=== PATIENT | female | born 1945 | race Caucasian/White ===

== ENCOUNTER 2017-05-21 15:55 | Observation (INO) | payer MEDICARE, BC ==
[2017-05-21 16:18] LABS: #Basophils 0.1 thou/uL (0.0-0.2); #Eosinphils 0.4 thou/uL (0.0-0.7); #Lymphocytes 2.5 thou/uL (1.20-3.40); #Monocytes 0.8 thou/uL (0.11-0.59); %Basophils 1.4 % (0.0-1.0); %Eosinophils 5.1 % (0.0-10.0); %Lymphocytes 27.9 % (21.0-51.0); %Monocytes 8.7 % (0.0-10.0); %Neutrophils 56.9 % (42.0-75.0); Hemoglobin 13.7 g/dL (12.0-16.0); Mean Corpuscular HGB CONC 33.4 g/dL (32.0-36.0); Mean Corpuscular Volume 89.9 fl (81.0-99.0); Mean Platelet Volume 7.3 fL (7.4-10.4); Platelet Count 268 thou/uL (130-400); RBC Distribution Width 12.5 % (11.5-14.5); Red Blood Cell (RBC) Count 4.57 mill/uL (4.20-5.40); White Blood Cell (WBC) Count 8.9 thou/uL (4.8-10.8)
--- NOTE | 2017-05-21 16:25 | CT ---
CT CERVICAL SPINE WITHOUT CONTRAST: INDICATION: Fall with neck pain. COMPARISON: None. FINDINGS: There is prominent end plate sclerosis involving the C4-5 and T1-T2 level. There is slight retrolist hesis of C5 on C6 which is likely degenerative. No acute fracture or subluxation is evident. The cr aniocervical junction appears within normal limits. There is diffuse osteopenia. There is biapical emphysema. IMPRESSION: No acute fracture or subluxation. POS: [facility]
--- NOTE | 2017-05-21 16:25 | CT ---
CT OF THE HEAD WITHOUT CONTRAST 05/21/17 INDICATION: History of fall on Plavix. COMPARISON: None. FINDINGS: There is postprocedural change of left frontal and left temporal lobe craniectomy. There is a vascula r clip seen just superior to the suprasellar cistern consistent with operative treatment of an aneury sm. There is some mild encephalomalacia involving the inferior and lateral aspect of the left frontal lobe. No midline shift is evident. No acute infarct or hemorrhage is noted. There is prominent left periorbital and left zygomatic soft tissue contusion. The [place] lenses have been replaced. Mastoid a ir cells are clear. The paranasal sinuses are clear. The skull is intact. No displaced fracture is ev ident. IMPRESSION: 1. No acute intracranial abnormality. 2. Postoperative changes of the skull and brain. 3. Prominent contusion involving the left periorbital soft tissues and overlying the left zygoma . No definite acute osseous abnormality is evident. POS: [facility]
[2017-05-21 16:26] LABS: PTT 32.9 SEC (22.9-36.1); Prothrombin Time 13.4 SEC (12.0-14.7)
--- NOTE | 2017-05-21 16:30 | CT ---
CT OF THE FACE WITHOUT CONTRAST: INDICATION: History of fall on Plavix. FINDINGS: There is a prominent contusion and laceration overlying the left periorbital region. There is some r adiopaque density seen within the soft tissue contusion superolateral to the left orbit which may ref lect some debris. There is a prominent contusion overlying the left zygoma. No definite acute fract ure is evident. The orbital rims are intact. No air fluid level is seen within the paranasal sinuse s. The zygomatic arches are intact. The mandible is intact. There is some periapical lucency invol ving the most posterior right mandibular molar suspicious for periodontal disease. The visualized in tracranial contents reveal no definite acute abnormality. There is encephalomalacia of the left fron suad lobe likely related to patient's prior left craniotomy and cerebral aneurysm repair. The [place] lenses have been replaced. IMPRESSION: 1. No acute displaced facial fracture demonstrated. 2. Prominent soft tissue contusion and laceration involving the left periorbital region as well as o verlying the left zygoma. There is a laceration involving the soft tissues superolateral to the left orbit with some scattered embedded radiopaque densities suspicious for foreign bodies. 3. There is postsurgical change of prior craniectomy and previous cerebral arterial aneurysm repair. POS: [facility]
[2017-05-21 16:50] LABS: ALT (SGPT) 35 U/L (8-55); AST (SGOT) 28 U/L (5-34); Albumin 4.6 g/dL (3.4-4.8); Alkaline Phosphatase 114 U/L (40-150); Anion Gap 13 mmol/L (10-20); BUN (Urea Nitrogen) 13 mg/dL (9.8-20.1); Bilirubin, Total 0.4 mg/dL (0.2-1.2); Calc. Creatinine Clearance 0 mL/min (70-130); Calcium 10.2 mg/dL (7.8-10.44); Carbon Dioxide 23 mmol/L (23-31); Chloride 103 mmol/L (98-107); Estimated GFR-MDRD 76; Globulin 3.5 g/dL (2.4-3.5); Glucose 99 mg/dL (83-110); Potassium 4.1 mmol/L (3.5-5.1); Protein, Total 8.1 g/dL (6.0-8.3); Sodium 135 mmol/L (136-145)
[2017-05-21] MEDS ORDERED: Carvedilol 3.125 MG TAB PO SCH (17:15)
[2017-05-21] MEDS ORDERED: CEFAZOLIN/Water 2 GM/20 ML SYRINGE SLOW IVP SCH (17:15)
--- NOTE | 2017-05-21 17:15 | RAD ---
AP VIEW OF THE PELVIS 05/21/17 INDICATION: History of fall with pelvic pain. FINDINGS: There is scattered vascular calcifications. There is diffuse osteopenia. No definite displaced pelvic fracture is evident. IMPRESSION: No acute abnormality. POS: [facility]
--- NOTE | 2017-05-21 17:16 | RAD ---
THREE VIEWS OF THE LEFT SHOULDER 05/21/17 INDICATION: History of a trip and fall at Dr. Willis's office with left shoulder pain. COMPARISON: None. FINDINGS: No acute fracture or subluxation is evident. There is mild left AC joint osteoarthrosis. The visuali zed left lung is clear. IMPRESSION: No acute osseous abnormality. POS: [facility]
--- NOTE | 2017-05-21 17:16 | RAD ---
TWO VIEWS OF THE LEFT HUMERUS 05/21/17 HISTORY: Fall with left arm injury. COMPARISON: None. IMPRESSION: No acute fracture or subluxation is evident. POS: [facility]
[2017-05-21] MEDS ORDERED: Bacitracin Zinc 1 Packet ONE (17:21)
[2017-05-21] MEDS ORDERED: Losartan 25 MG TAB PO SCH (17:30)
--- NOTE | 2017-05-21 18:01 | RAD ---
THREE VIEWS OF THE LEFT WRIST 05/21/17 COMPARISON: None. HISTORY: Fall, trauma, pain. FINDINGS: there is prominent degenerative change involving the first carpometacarpal joint with joint space radha rowing, subchondral sclerosis and marked osteophyte formation. There is no widening of the scapholuna te interval. There is no displaced fracture or evidence of dislocation. Alignment appears normal on t he lateral view. IMPRESSION: No displaced fracture or evidence of dislocation. Severe degenerative change of the first carpometaca rpal joint. If symptoms persists, followup in 7-10 days with dedicated scaphoid views advised. POS: [facility]
--- NOTE | 2017-05-21 18:04 | RAD ---
FRONTAL AND LATERAL IMAGING LEFT FOREARM 05/21/17 COMPARISON: None. HISTORY: Fall, trauma, pain. FINDINGS: No displaced fracture or evidence of dislocation. Bones appear demineralized. IMPRESSION: No acute findings. POS: [facility]
[2017-05-21] MEDS ORDERED: Dextrose 50% Abboject 50 ML SYRINGE SLOW IVP PRN (18:23)
[2017-05-21] MEDS ORDERED: Dextrose 5% in Water 1,000 ML IV PRN (18:23)
[2017-05-21] MEDS ORDERED: Acetaminophen 325 MG TAB ONE (18:23)
[2017-05-21] MEDS ORDERED: traMADol HCl 50 MG TAB PO PRN (18:55)
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
[2017-05-21 23:20] VITALS: BMI 16.2
[2017-05-21] MEDS: Famotidine 20 MG TAB PO SCH ×2 (23:50→23:54)
[2017-05-21] MEDS: Acetaminophen 500 MG TAB PO SCH (23:54)
[2017-05-22 04:55] LABS: #Eosinphils 0.2 thou/uL (0.0-0.7); #Lymphocytes 1.4 thou/uL (1.20-3.40); #Monocytes 0.6 thou/uL (0.11-0.59); %Basophils 0.4 % (0.0-1.0); %Eosinophils 1.8 % (0.0-10.0); %Lymphocytes 15.2 % (21.0-51.0); %Monocytes 6.1 % (0.0-10.0); %Neutrophils 76.5 % (42.0-75.0); Hemoglobin 11.8 g/dL (12.0-16.0); Mean Corpuscular HGB CONC 33.9 g/dL (32.0-36.0); Mean Corpuscular Hemoglobin 30.3 pg (27.0-31.0); Mean Corpuscular Volume 89.5 fl (81.0-99.0); Mean Platelet Volume 7.2 fL (7.4-10.4); Platelet Count 213 thou/uL (130-400); RBC Distribution Width 12.4 % (11.5-14.5); Red Blood Cell (RBC) Count 3.88 mill/uL (4.20-5.40); White Blood Cell (WBC) Count 9.1 thou/uL (4.8-10.8)
[2017-05-22] MEDS: Acetaminophen 500 MG TAB PO SCH ×3 (05:26→18:40)
--- NOTE | 2017-05-22 07:44 | CT ---
PRELIMINARY REPORT/[facility]/EMERGENCY AFTER HOURS PROCEDURE: EXAM: CT Head Without Intravenous Contrast CLINICAL HISTORY: 72 years old, female; Condition or disease; Other: Head trauma; Patient HX: F/u fall, head trauma, pt on plavix TECHNIQUE: Axial computed tomography images of the head/brain without intravenous contrast. COMPARISON: CT Brain WO Con 2017-05-21 16:13 FINDINGS: Left periorbital soft tissue swelling. No definite acute skull fracture. Included paranasal sinuses are essentially clear. Prior left craniotomy. Aneurysm clip seen in the anterior suprasellar region. Areas of chronic encephalomalacia are again seen in the inferior left frontal lobe and anterior left temporal lobe, unchanged. No acute intracranial hemorrhage or mass effect. Ventricle size is normal for age. There is mild, relatively symmetrical decreased attenuation in the periventricular white matter, like ly from microvascular disease. No definite acute infarct by CT. IMPRESSION: No acute intracranial hemorrhage or mass effect. Changes of microvascular disease. Chronic/postsurgical changes as discussed above. Thank you for allowing us to participate in the care of your patient. Dictated and Authenticated by: Giovanni Velasco MD 05/22/2017 5:26 AM Central Time ([place] & [place]) FINAL REPORT EMERGENCY AFTER HOURS CT BRAIN WITHOUT CONTRAST: Date: 05/22/17 COMPARISON: 05/21/17. FINDINGS/IMPRESSION: I agree with the findings and impression given in the preliminary report per [facility] physician. No evide nce of acute intracranial abnormality. POS: [facility]
[2017-05-22] MEDS ORDERED: FOLIC ACID PO SCH (09:00)
[2017-05-22] MEDS ORDERED: VITAMIN D2 PO SCH (09:00)
[2017-05-22] MEDS ORDERED: [UNRECOGNIZED DRUG - OTHER] PO SCH (09:00)
[2017-05-22] MEDS ORDERED: Losartan 25 MG TAB PO SCH ×2 (09:00→21:00)
[2017-05-22] MEDS ORDERED: CYANOCOBALAMIN PO SCH (09:00)
[2017-05-22] MEDS ORDERED: Ferrous Sulfate 325 MG TAB PO SCH (09:00)
[2017-05-22] MEDS ORDERED: CALCIUM CITRATE PO SCH (09:00)
[2017-05-22] MEDS: Famotidine 20 MG TAB PO SCH ×2 (09:54→20:24)
[2017-05-22] MEDS: Calcium Carbonate + Vit D 1 TAB PO SCH (09:56)
[2017-05-22] MEDS: Atorvastatin Calcium 40 MG TAB PO SCH (09:56)
[2017-05-22] MEDS: Amlodipine 10 MG TAB PO SCH (09:56)
[2017-05-22] MEDS: Cyanocobalamin (Vitamin B-12) 1,000 MCG TAB PO SCH (09:57)
[2017-05-22] MEDS: Folic Acid 1 MG TAB PO SCH (09:57)
[2017-05-22] MEDS: Carvedilol 3.125 MG TAB PO SCH ×2 (10:07→16:52)
--- NOTE | 2017-05-22 18:12 | PRG ---
DATE OF SERVICE: 05/22/2017 ATTENDING PHYSICIAN: Elmer Delacruz DO. SUBJECTIVE: The patient is a 72-year-old female, being treated with Plavix, who had a ground level f all yesterday, landing on her right eye. She was brought to the [facility] ED and diagnosed with a l arge hematoma with a retained foreign body. She was negative for any fractures. There are no cerebr al, intrathoracic or intra-abdominal trauma. Due to her being on Plavix and having a mechanism nesha rning for developing an intracranial hemorrhage, she was admitted by the Trauma Services for observat ion and pain management. This morning, she reports improved pain control. She had a repeat CT scan this morning, which showed no acute intracranial hemorrhage or mass effect. OBJECTIVE: VITAL SIGNS: BP 167/71, pulse 80, temperature 96, respirations 18, O2 sat 97% on room air. GENERAL APPEARANCE: Elderly female, sitting in bed, in no acute distress. Her head is bandaged and the bandage appears clean and dry. HEENT: The patient has a large hematoma over the left periorbital area. Her head is wrapped in a ba ndage, which is clean and dry. RESPIRATORY: Her breath sounds are clear to auscultation bilaterally with normal effort. CARDIOVASCULAR: She has a regular rate and rhythm. Normal S1 and S2. ABDOMEN: Soft, nontender, nondistended. Normal bowel sounds. EXTREMITIES: She is neurovascularly intact x4. Moves all extremities. NEUROLOGIC: GCS is 15 this morning. She is alert and oriented x3. ASSESSMENT: 1. Status post ground level fall. 2. Left orbital hematoma with retained foreign body. 3. Currently anticoagulated on Plavix. 4. Soft tissue injury and skin tears of the left dorsum of hand. 5. Ground level fall with mechanism concerning for intracranial trauma. 6. Acute traumatic pain. PLAN: 1. The plan is to continue to try and optimize pain control. We will also continue serial neurologi c checks. Repeat CT scan this morning reassuring. 2. Continue with PT and OT. We will place a consult request for a walking program. Case management has been following and is working on rehab placement. This patient was seen and examined along with Dr. Elmer Delacruz on rounds, who agrees with this asses sment and plan.
[2017-05-22] MEDS: Bisacodyl 5 MG TAB PO PRN (18:40)
[2017-05-23] MEDS: Acetaminophen 500 MG TAB PO SCH ×3 (00:40→12:10)
[2017-05-23] MEDS ORDERED: Alendronate Sodium 70 mg Tablet PO SCH (06:00)
--- NOTE | 2017-05-23 07:33 | PRG ---
DATE OF SERVICE: 05/22/2017 SUBJECTIVE: Patient is doing well. She does not report any pain. She appears to report feeling better. Anticipate getting her bandage off tomorrow. OBJECTIVE: vital signs have been reviewed and are stable physical exam unchanged from daily progress note. ASSESSMENT AND PLAN: continue care as ordered in the daily progress note. continue to monitor MTDD
[2017-05-23] MEDS: Cyanocobalamin (Vitamin B-12) 1,000 MCG TAB PO SCH (09:47)
[2017-05-23] MEDS: Famotidine 20 MG TAB PO SCH (09:47)
[2017-05-23] MEDS: Calcium Carbonate + Vit D 1 TAB PO SCH (09:47)
[2017-05-23] MEDS: Amlodipine 10 MG TAB PO SCH (09:47)
[2017-05-23] MEDS: Atorvastatin Calcium 40 MG TAB PO SCH (09:47)
[2017-05-23] MEDS: Carvedilol 3.125 MG TAB PO SCH ×2 (09:47→16:05)
[2017-05-23] MEDS: Folic Acid 1 MG TAB PO SCH (09:47)
[2017-05-23] MEDS: Bisacodyl 5 MG TAB PO PRN (09:53)
[2017-05-23 12:12] VITALS: BP 162/72
[2017-05-23 12:18] VITALS: TEMP 97.8
--- NOTE | 2017-05-23 12:37 | PRG ---
DATE OF SERVICE: 05/23/2017 SUBJECTIVE: Ms. White is a 72-year-old woman status post ground level fall sustaining facial and up per extremity trauma. The patient was previously on aspirin and Plavix. Overnight, she slept well. Currently, she is awake and alert with a Phil coma scale of 15. She tolerated his diet and has h ad bowel movement. OBJECTIVE: VITAL SIGNS: Include blood pressure 147/70, pulse is 76, respiratory rate is 18, maximum temperature in the last 24 hours is 98.1 degrees Fahrenheit, oxygen saturation is 97% on room air. HEENT: Reveals decrease in facial swelling and resolving hematoma. No active bleeding present. Pup ils equal, round, and reactive to light and accommodation. HEART: Reveals regular rate and rhythm. No murmurs or gallops auscultated. CHEST: Clear to auscultation bilaterally. Breathing regular and unlabored. ABDOMEN: Soft, nontender and nondistended. NEUROLOGIC: Reveals no focal deficits present. IMPRESSION: 1. Post-admission day #2, status post ground level fall. 2. Acute traumatic brain injury with cerebral concussion. No active neurological deficits. 3. Resolving facial hematoma. PLAN: Increase activity as tolerated. We will resume low-dose aspirin and if tolerated, we will res ume Plavix tomorrow given this patient's significant peripheral vascular disease history. The patient will be transferred to a general surgical floor. Above findings and plan discussed with the patient who indicates understanding of the information given. I answered her questions.
[2017-05-23] MEDS ORDERED: Aspirin 81 mg Enteric Coated Tablet PO SCH (14:00)
--- NOTE | 2017-05-23 19:23 | DIS ---
DATE OF ADMISSION: 05/21/2017 DATE OF DISCHARGE: 05/23/2017 ADMITTING PHYSICIAN: Dr. Elmer Delacruz. DISCHARGING PHYSICIAN: Dr. Elmer Delacruz. REASON FOR HOSPITALIZATION: Ground level fall, patient on Plavix. HOSPITAL DIAGNOSES: 1. Ground level fall. 2. Current use of antiplatelet therapy, Plavix. 3. Extensive contusion and hematoma of the left side of face, left temporal scalp, and left periorbital area, left zygomatic area. 4. Soft tissue injury and skin tears over left dorsum of hand. PROCEDURES: None. DISCHARGE CONDITION: Good. DISPOSITION: Rehabilitation. DISCHARGE MEDICATIONS: The patient may resume all home medications. Aspirin resumed on day of discharge. Plavix may resume the day following discharge if patient has no further bleeding. Activity orders as tolerated. THERAPY ORDERS: Physical and occupational therapy at rehabilitation. DIETARY INSTRUCTIONS: Regular. FOLLOWUP: 1. Follow up with Dr. Raj Willis as previously scheduled. 2. Follow up with PCP. 3. Follow up with Dr. Delacruz as needed. BRIEF HISTORY OF HOSPITALIZATION: Ms. White is a 72-year-old female who was leaving her scheduled appointment at Dr. Willis's office when she tripped and fell outside of Dr. Willis's office. She reports that she was trying to step upon a ramp and did not realize the height of the ramp, which caused her to trip and fall forward, landing on her outstretched hand and face. Ms. White is currently on long-term Plavix due to vascular disease. She had a laceration over her left eyebrow, which was bleeding as well as hematoma to the left frontal scalp and left zygomatic area and periorbital ecchymosis. She was code green activation as she was on hospital campus when she fell. She was then transported to the emergency department where a workup did not identify any intracranial, intrathoracic, intra-abdominal or orthopedic injuries. Her mechanism of injury with concurrent use of Plavix was concerning for a delayed intracranial bleeding and she was therefore admitted to the hospital by the Trauma Service for continued observation and neurologic monitoring. Repeat CT scan the following morning did not demonstrate any intracranial hemorrhage. She remained GCS of 15. Pain was controlled. Wound care was consulted for a skin avulsion on the left hand. On hospital day #2, she had no further bleeding from facial or extremity injuries. Hematoma had significantly resolved. She did have diffuse edema over the left side of face. She was evaluated by Physical Therapy and Rehabilitation referral was entered. On hospital day #2, she was accepted by [facility] for admission to their facility. She is discharged to [facility] in good condition. Follow up as listed above. The patient was seen and examined with Dr. Delacruz, who agrees with the assessment and plan. NATALYA
[2017-05-24] MEDS ORDERED: Aspirin 81 mg Enteric Coated Tablet PO SCH ×2 (09:00)
== END 2017-05-23 16:08 ==
LOC: ERS 15:55 → 2SE 19:00
PROVIDERS: ADMIT Student in an Organized Health Care Education/Training Program; ATTEND Student in an Organized Health Care Education/Training Program
DX: S01.112A Laceration without foreign body of left eyelid and periocular area, initial encounter (principal); S00.03XA Contusion of scalp, initial encounter; S05.10XA Contusion of eyeball and orbital tissues, unspecified eye, initial encounter; S61.402A Unspecified open wound of left hand, initial encounter; E78.5 Hyperlipidemia, unspecified; E55.9 Vitamin D deficiency, unspecified; I73.9 Peripheral vascular disease, unspecified; I65.29 Occlusion and stenosis of unspecified carotid artery; I10 Essential (primary) hypertension; R00.2 Palpitations; M81.0 Age-related osteoporosis without current pathological fracture; L57.8 Other skin changes due to chronic exposure to nonionizing radiation; L82.1 Other seborrheic keratosis; L68.0 Hirsutism; I25.10 Atherosclerotic heart disease of native coronary artery without angina pectoris; G89.11 Acute pain due to trauma; F17.210 Nicotine dependence, cigarettes, uncomplicated; W01.0XXA Fall on same level from slipping, tripping and stumbling without subsequent striking against object, initial encounter; Y92.238 Other place in hospital as the place of occurrence of the external cause; Z79.52 Long term (current) use of systemic steroids; Z79.82 Long term (current) use of aspirin; Z79.899 Other long term (current) drug therapy; Z88.5 Allergy status to narcotic agent; Z90.710 Acquired absence of both cervix and uterus; Z98.890 Other specified postprocedural states
CPT/HCPCS: 70450 ×2; 70486; 72125; 72170; 73030; 73060; 73090; 73110; 80053; 82962 ×3; 85025 ×2; 85610; 85730; 96374; 97110; 97116 ×2; 97139 ×2; 97530; 99285; G0378; G8978; G8979; G8987; G8988; 36415; 36416

== ENCOUNTER 2017-06-18 10:01 | Outpatient (CLI) | payer MEDICARE, BC ==
--- NOTE | 2017-06-18 12:33 | CT ---
CT ANGIOGRAM ABDOMEN AND PELVIS WITH IV CONTRAST AND 3D RECONSTRUCTIONS CT ANGIOGRAM BILATERAL LOWER EXTREMITIES WITH RUNOFF TO THE FEET WITH IV CONTRAST AND 3D RECONSTRUCTI ONS: Date: 06/18/17 HISTORY: Atherosclerosis of andreafski arteries. Patient has claudication with left leg weakness. Multiple prior s urgeries on abdominal aorta and leg vessels, according to patient. COMPARISON: None available. FINDINGS: CT ANGIOGRAM ABDOMEN AND PELVIS: Atherosclerotic vascular calcifications are seen in the abdominal aorta and involving the andreafski hilario c arteries. There are postsurgical changes related to an abdominal aortoiliac graft repair. There are atherosclerotic vascular calcifications seen at the origins of each renal artery, which limits adequ ate evaluation of the renal artery origins, but there is suggested mild to moderate narrowing of each renal artery origin. There is atherosclerotic irregularity involving the proximal celiac artery with at least mild narrowi ng present. Mesenteric vessels are generally small in size. However, the superior mesenteric artery d oes appear patent. Inferior mesenteric artery is occluded at the origin. The abdominal biiliac graft repair is patent. There is ectasia of the left common femoral artery, which is otherwise patent. Ther e is atherosclerotic plaque involving the right common femoral artery with mild narrowing present. Emphysematous changes are present at each lung base. The liver, spleen, pancreas, and bilateral adrenal glands demonstrate a normal CT appearance. Subcent imeter, too small to characterize, hypodense lesions are seen in the left kidney, with mild scarring involving the anterior aspect of inferior pole left kidney, as well as a small focal area of scarring involving the lateral aspect mid portion of the right kidney. Urinary bladder has a normal CT appearance. There is a moderate amount of retained fecal material see n throughout the colon. Degenerative changes are present in the spine. There is slight Grade I anterolisthesis of L5 on S1 re lated to prominent facet degenerative changes at this level. CT ANGIOGRAM BILATERAL LOWER EXTREMITIES WITH RUNOFF TO THE FEET: Right lower extremity: There is calcified atherosclerotic plaque seen throughout the right superficial femoral artery with m ild degrees of narrowing present. The profunda femoral and popliteal artery on the right are patent. There is three vessel runoff to the right lower extremity and the dorsalis pedis artery and posterior tibial arteries are seen at the level of the foot. Left lower extremity: There is mild atherosclerotic plaque seen within the left superficial femoral artery with only mild d egrees of narrowing present. The left profunda femoral and popliteal arteries are patent. There is th ree vessel runoff to the left lower extremity with dorsalis pedis artery and posterior tibial artery seen in the foot. IMPRESSION: 1. Postsurgical changes related to an abdominal aortic biiliac bypass which is patent. Atherosclerot ic vascular calcifications are seen in the andreafski abdominal aorta and iliac arteries. 2. Limited evaluation of the renal artery origins, and the renal arteries bilaterally are generally small in caliber with at least mild and possibly moderate narrowing at the origin of each renal arter y. However, the kidneys do enhance normally and symmetrically bilaterally aside from mild scarring in volving the anterior aspect lower pole left kidney. 3. Generalized small caliber of the celiac and superior mesenteric arteries with mild atheroscleroti c vascular disease at the origin of the celiac artery. 4. Ectasia of the left common femoral artery. 5. Three vessel runoff to the bilateral lower extremities with atherosclerotic vascular calcificatio ns seen throughout the superficial femoral arteries bilaterally resulting in multifocal areas of mild narrowing. 6. Grade I anterolisthesis of L5 on S1 related to facet degenerative changes. 7. Emphysematous changes at each lung base. POS: [facility]
== END 2017-06-18 10:02 | disposition home or self-care (01) ==
LOC: CT 10:01
PROVIDERS: ATTEND Thoracic Surgery (Cardiothoracic Vascular Surgery)
DX: I70.212 Atherosclerosis of native arteries of extremities with intermittent claudication, left leg (principal); I70.308 Unspecified atherosclerosis of unspecified type of bypass graft(s) of the extremities, other extremity; I70.0 Atherosclerosis of aorta; I70.8 Atherosclerosis of other arteries; I77.819 Aortic ectasia, unspecified site; I70.203 Unspecified atherosclerosis of native arteries of extremities, bilateral legs; M47.896 Other spondylosis, lumbar region; M43.17 Spondylolisthesis, lumbosacral region
CPT/HCPCS: 75635; 82565